=== PATIENT | female | born 1940 ===

== ENCOUNTER 2024-05-31 17:24 | Emergency (ER) | payer MEDICARE, OTHER ==
[~2024-05-31] VITALS: Ht 157.5 cm; Wt 72.6 kg
[2024-05-31] MEDS ORDERED: METO25ER PO (17:35)
[2024-05-31] MEDS ORDERED: Meclizine HCl 25 MG Tab PO ONE (19:15)
[2024-05-31] MEDS ORDERED: HydrALAZINE HCl 20 MG / ML 1ML Vial IV ONE (19:15)
[2024-05-31 19:44] VITALS: BP 160/82
== END 2024-05-31 20:38 | disposition home or self-care (01) ==
LOC: ER 17:24
DX: R42 Dizziness and giddiness (principal); I10 Essential (primary) hypertension; Z79.899 Other long term (current) drug therapy
CPT/HCPCS: 93005; 93010; 96374; 99284-25; A9270; J0360